=== PATIENT | female | born 1965 | race Caucasian/White ===

== ENCOUNTER 2016-05-08 13:28 | Emergency (ER) | payer SELFPAY ==
[~2016-05-08] VITALS: Ht 162.6 cm; Wt 68.0 kg
[~2016-05-08 13:28] MED LIST: ATEN25 PO; BACL10TA PO; CLON.1 PO; NAPR500 PO; OLAN5 PO
[2016-05-08 13:32] VITALS: BP 147/89; PULSE 74; RESP 16; TEMP 97.9; O2SAT 98
[2016-05-08] MEDS ORDERED: ATEN25TA PO (13:41)
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
--- NOTE | 2016-05-08 15:23 | RADRPT ---
EXAM DATE/TIME: 05/08/2016 14:03 [facility] COMPARISON: No previous studies available for comparison. INDICATIONS : Neck pain for 3 months, radiating down right side of body. RADIATION DOSE: 31.92 CTDIvol (mGy) MEDICAL HISTORY : Hypertension. Seizures. Cardiovascular diseaseDiabetes. SURGICAL HISTORY : None. ENCOUNTER: Initial ACUITY: 3 months PAIN SCALE: 8/10 LOCATION: Right neck TECHNIQUE: Volumetric scanning of the cervical spine was performed. Multiplanar reconstructions in the sagittal, coronal and oblique axial planes were performed. Using automated exposure control and adjustment o f the mA and/or kV according to patient size, radiation dose was kept as low as reasonably achievable to obtain optimal diagnostic quality images. FINDINGS: VERTEBRAE: Normal vertebral body height. ALIGNMENT: No evidence of subluxation. C2-C3: The bony spinal canal is normal in size. No evidence of disc bulge or herniation. The neural forami na are bilaterally patent. C3-C4: The bony spinal canal is normal in size. No evidence of disc bulge or herniation. The neural forami na are bilaterally patent. C4-C5: There is disc space narrowing with a mild broad-based disc bulge. This flattens the ventral portion o f the thecal sac. Bony uncovertebral hypertrophy generate mild narrowing of the lateral recesses and neural foramina bilaterally. C5-C6: There is disc space narrowing with a broad-based disc osteophyte complex that abuts the ventral porti on of the cord. Bony uncovertebral hypertrophy generates moderate lateral recess and moderate bilater al neural foraminal narrowing. C6-C7: There is disc space narrowing with a mild broad based disc osteophyte complex without abutment of the cord. Mild narrowing of the lateral recesses and neural foramina due to bony uncovertebral hypertrop hy. C7-T1: The bony spinal canal is normal in size. No evidence of disc bulge or herniation. The neural forami na are bilaterally patent. CONCLUSION: 1. Degenerative changes. 2. No acute abnormality. Emiliano Hinton Jr., MD on May 08, 2016 at 15:15 Board Certified Radiologist. This report was verified electronically.
[2016-05-08] MEDS ORDERED: TYLETAB34 PO (15:25)
[2016-05-08] MEDS ORDERED: METHOCARBAMOL 500 MG TAB PO ONE (15:45)
== END 2016-05-08 16:22 | disposition home or self-care (01) ==
LOC: NEPB 13:28
DX: M54.12 Radiculopathy, cervical region (principal); I10 Essential (primary) hypertension; F17.210 Nicotine dependence, cigarettes, uncomplicated
CPT/HCPCS: 72125

== ENCOUNTER 2016-08-05 15:22 | Emergency (ER) | payer SELFPAY ==
[~2016-08-05] VITALS: Ht 162.6 cm; Wt 68.0 kg
[~2016-08-05 15:22] MED LIST changes: -ATEN25 PO; +ATEN25TA PO; -BACL10TA PO; -CLON.1 PO; -NAPR500 PO; -OLAN5 PO; +TYLETAB34 PO
[2016-08-05 15:23] VITALS: BP 178/95; PULSE 98; RESP 20; TEMP 97.9; O2SAT 96
--- NOTE | 2016-08-05 15:32 | PD ---
Physical Exam Time Seen by Provider: 15:27 Narrative 50 year old female patient presents with multiple chief complaints she states " I think I have worms in my head & stool". She reports having "pictures" of the worms. She also reports pain in her right hip, bilateral arm, and chest x 7 days. She denies fever, chills, SOB, or ABD pain. Patient seen at triage desk. VS reviewed. Patient waiting bed placement. Data Data Last Documented VS Vital Signs Date Time Temp Pulse Resp B/P Pulse Ox O2 Delivery O2 Flow Rate FiO2 08/05/16 15:23 97.9 98 20 178/95 96 Room Air MDM Supervised Visit with JENNIE: Lissett Batista Aug 05, 2016 15:32
== END 2016-08-05 18:05 | disposition left against medical advice (07) ==
LOC: NED 15:22
DX: M25.551 Pain in right hip (principal)
CPT/HCPCS: 99281

== ENCOUNTER 2016-08-07 10:11 | Emergency (ER) | payer SELFPAY ==
[~2016-08-07] VITALS: Ht 162.6 cm; Wt 70.0 kg
[2016-08-07 10:15] VITALS: BP 175/104; PULSE 104; RESP 16; TEMP 98.9; O2SAT 96
--- NOTE | 2016-08-07 10:37 | PD ---
HPI . parasites crawling through head and in abdomen Chief Complaint: Medical Clearance Time Seen by Provider: 10:36 Travel History International Travel<30 days: No Contact w/Intl Traveler<30days: No Traveled to known affect area: No History of Present Illness HPI 50-year-old female who denies any past medical history here with complaints of parasites crawling through her head and inside her abdomen. 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 She thinks that she may have contracted some type of parasite from the dog. She reports having diarrhea for over several months. She tells me that she had 3 bowel movements today and it total of 12 bowel movements yesterday. She also reports having parasites crawling through her head and believes they are making tunnels. During our discussion, she keeps sorting through her hair trying to show me tunnels and there is nothing that is visible. She tells me that I may think she is crazy, however she has parasites and she needs to be seen. She denies any significant weight loss. She has no other complaints. She admits to drinking alcohol and smoking. She denies any illegal drug use. PFSH Past Medical History Anxiety: Yes Diminished Hearing: No Endocrine: No Gastrointestinal Disorders: Yes (SILIAC DISEASE) Hypertension: Yes Immune Disorder: No Tetanus Vaccination: < 5 Years Influenza Vaccination: No ?: Not Menopausal: No : 1 Miscarriage: 2 Ectopic : Yes Dilation and Curettage (D&C): Yes Past Surgical History Other Surgery: Yes (LT CARPAL TUNNEL SURGERY) Social History Alcohol Use: Yes (2-3 drinks daily) Tobacco Use: Yes Substance Use: No Allergies-Medications (Allergen,Severity, Reaction): Coded Allergies: Lisinopril (Verified Allergy, Severe, 05/08/16) Penicillin (Verified Allergy, Severe, RASH, 05/08/16) Uncoded Allergies: tramadol (Adverse Reaction, Severe, Nausea/Vomiting, 10/28/11) Reported Meds & Prescriptions Reported Meds & Active Scripts Active Tylenol-Codeine #3 (Acetaminophen-Codeine) 300-30 mg Tab 1 Tab PO Q4H PRN Reported Atenolol 25 Mg Tab 25 Mg PO BID Review of Systems General / Constitutional: No: Fever Eyes: No: Visual changes HENT: No: Headaches Cardiovascular: No: Chest Pain or Discomfort Respiratory: No: Shortness of Breath Gastrointestinal: No: Abdominal Pain Genitourinary: No: Dysuria Musculoskeletal: No: Pain Skin: No Rash Neurologic: No: Weakness Psychiatric: No: Depression Endocrine: No: Polydipsia Hematologic/Lymphatic: No: Easy Bruising Physical Exam Narrative GENERAL: AAO x 3, no acute distress, Well-nourished, well-developed patient. SKIN: Warm and dry. No visible rashes or bruising. No tunnel, excoriation or burrows seen in patient scalp. HEAD: Normocephalic and atraumatic. EYES: No scleral icterus. No injection or drainage. EOM intact, PERRLA ENT: No nasal drainage noted. Mucous membranes pink. Airway patent. NECK: Supple, trachea midline. No JVD. CARDIOVASCULAR: Regular rate and rhythm without murmurs, gallops, or rubs. RESPIRATORY: Breath sounds equal bilaterally. No accessory muscle use. No rhonchi or rales. GASTROINTESTINAL: Abdomen soft, non-tender, nondistended. No rebound or guarding. No Meyer or McBurney's point tenderness. EXTREMITIES: No cyanosis or edema. BACK: Nontender without obvious deformity. No CVA tenderness. 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 Data Data Last Documented VS Vital Signs Date Time Temp Pulse Resp B/P Pulse Ox O2 Delivery O2 Flow Rate FiO2 08/07/16 12:15 90 18 178/98 99 08/07/16 10:15 98.9 Orders Complete Blood Count With Diff (08/07/16 10:46) Comprehensive Metabolic Panel (08/07/16 10:46) Psych Screen (08/07/16 10:46) Drug Screen, Random Urine (08/07/16 10:46) Alcohol (Ethanol) (08/07/16 10:46) Salicylates (Aspirin) (08/07/16 10:46) Tylenol (Acetaminophen) (08/07/16 10:46) Ondansetron Odt (Zofran Odt) (08/07/16 11:15) Labs Laboratory Tests Test 08/07/16 10:50 White Blood Count 6.0 TH/MM3 Red Blood Count 4.54 MIL/MM3 Hemoglobin 14.5 GM/DL Hematocrit 42.3 % Mean Corpuscular Volume 93.2 FL Mean Corpuscular Hemoglobin 31.9 PG Mean Corpuscular Hemoglobin 34.2 % Concent Red Cell Distribution Width 13.4 % Platelet Count 259 TH/MM3 Mean Platelet Volume 8.0 FL Neutrophils (%) (Auto) 66.2 % Lymphocytes (%) (Auto) 23.5 % Monocytes (%) (Auto) 6.6 % Eosinophils (%) (Auto) 2.9 % Basophils (%) (Auto) 0.8 % Neutrophils # (Auto) 4.0 TH/MM3 Lymphocytes # (Auto) 1.4 TH/MM3 Monocytes # (Auto) 0.4 TH/MM3 Eosinophils # (Auto) 0.2 TH/MM3 Basophils # (Auto) 0.0 TH/MM3 CBC Comment DIFF FINAL Differential Comment Sodium Level 142 MEQ/L Potassium Level 4.1 MEQ/L Chloride Level 109 MEQ/L Carbon Dioxide Level 25.0 MEQ/L Anion Gap 8 MEQ/L Blood Urea Nitrogen 16 MG/DL Creatinine 1.05 MG/DL Estimat Glomerular Filtration 55 ML/MIN Rate Random Glucose 84 MG/DL Calcium Level 8.9 MG/DL Total Bilirubin 0.3 MG/DL Aspartate Amino Transf 34 U/L (AST/SGOT) Alanine Aminotransferase 47 U/L (ALT/SGPT) Alkaline Phosphatase 95 U/L Total Protein 6.9 GM/DL Albumin 3.5 GM/DL Salicylates Level 1.7 MG/DL Urine Opiates Screen NEG Acetaminophen Level 9.8 MCG/ML Urine Barbiturates Screen NEG Urine Amphetamines Screen POS Urine Benzodiazepines Screen POS Urine Cocaine Screen NEG Urine Cannabinoids Screen POS Ethyl Alcohol Level 81 MG/DL [facility] Medical Decision Making Medical Screen Exam Complete: Yes Emergency Medical Condition: Yes Medical Record Reviewed: Yes Differential Diagnosis Delusional behavior, hallucination, morgellons disease, drug-induced mood disorder Narrative Course 50-year-old female here with complaints of being infested with parasites. Patient truly believes that she has parasites crawling through her skull and within her abdomen. I have that examination. There are no abnormalities of the scalp or hair. She does not have any abdominal pain. I do not believe she has any acute intra- abdominal pathology. I will go ahead and check labs and also ordered a baseline labs required for psych screen. I do believe patient will benefit from a psychiatric evaluation. Labs have been reviewed she has a slight elevation of creatinine and low GFR. Tox screen is positive for amphetamine, benzos and Cannibis. She also has ETOH level of 81. I truly believe she will benefit from a psych eval. This is more than likely drug induced psychosis. Diagnosis Primary Impression: Drug-induced psychotic disorder with delusions Condition: Stable Amy Mcgregor Aug 07, 2016 10:37 Amy Mcgregor Aug 07, 2016 10:37
[2016-08-07] MEDS ORDERED: ONDANSETRON ODT 4 MG TAB PO ONE (11:15)
[2016-08-07 11:37] LABS: BASOPHIL % 0.8 % (0.0-2.0); EOSINOPHIL # 0.2 TH/MM3 (0-0.4); EOSINOPHIL % 2.9 % (0.0-4.0); HEMATOCRIT 42.3 % (35.0-46.0); HEMO FLAGS DIFF FINAL; LYMPH % 23.5 % (9.0-44.0); LYMPHOCYTE # 1.4 TH/MM3 (1.0-4.8); MEAN CELL VOLUME 93.2 FL (80.0-100.0); MEAN CORPUSCULAR HEMOGLOBIN 31.9 PG (27.0-34.0); MEAN CORPUSCULAR HGB CONC 34.2 % (32.0-36.0); MONO % 6.6 % (0.0-8.0); NEUT % 66.2 % (16.0-70.0); PLATELET COUNT 259 TH/MM3 (150-450); RED BLOOD COUNT 4.54 MIL/MM3 (4.00-5.30); RED CELL DISTRIBUTION WIDTH 13.4 % (11.6-17.2)
[2016-08-07 11:43] LABS: ALT (GPT) 47 U/L (10-53); AMPHETAMINE, URINE POS (NEG); ANION GAP 8 MEQ/L (5-15); AST (GOT) 34 U/L (15-37); BARBITURATES, URINE NEG (NEG); BLOOD UREA NITROGEN 16 MG/DL (7-18); CHLORIDE 109 MEQ/L (98-107); COCAINE, URINE NEG (NEG); GLOMERULAR FILTRATION RATE 55 ML/MIN (>89); POTASSIUM 4.1 MEQ/L (3.5-5.1); SODIUM (NA) 142 MEQ/L (136-145)
[2016-08-07 11:45] LABS: ACETAMINOPHEN 9.8 MCG/ML (10.0-30.0); ALKALINE PHOSPHATASE 95 U/L (45-117); TOTAL BILIRUBIN ADULT 0.3 MG/DL (0.2-1.0)
[2016-08-07 12:15] VITALS: BP 178/98; PULSE 90; RESP 18; O2SAT 99
== END 2016-08-07 15:24 | disposition left against medical advice (07) ==
LOC: NEPD 10:11
DX: B89 Unspecified parasitic disease (principal); F19.950 Other psychoactive substance use, unspecified with psychoactive substance-induced psychotic disorder with delusions; I10 Essential (primary) hypertension; Z72.0 Tobacco use
CPT/HCPCS: 80053; 80307; 85025; 99284